=== PATIENT | female | born 1975 | race Caucasian/White ===

== ENCOUNTER 2022-03-23 11:07 | Day surgery (SDC) | payer OTHER ==
[2022-03-23 11:55] VITALS: BMI 25.0
[2022-03-23] MEDS ORDERED: MIDAZOLAM HCL 2 MG/2 ML SINGLE DOSE VIAL ONE (13:00)
[2022-03-23] MEDS ORDERED: SUCCINYLCHOLINE CHLORIDE 200 MG/10 ML SYRINGE ONE (13:00)
[2022-03-23] MEDS ORDERED: PROPOFOL 20 ML ONE (13:00)
[2022-03-23] MEDS ORDERED: ROCURONIUM BROMIDE 50 MG/5 ML SYRINGE ONE ×2 (13:00→14:28)
[2022-03-23] MEDS ORDERED: ceFAZolin SODIUM 1 GM VIAL IVPB ONE (13:10)
[2022-03-23] MEDS ORDERED: GLYCOPYRROLATE 0.2 MG/1 ML VIAL ONE (15:32)
[2022-03-23] MEDS ORDERED: NEOSTIGMINE METHYLSULFATE 0.5 MG/ML - 10 ML MDV ONE (15:32)
[2022-03-23] MEDS ORDERED: diphenhydrAMINE HCL 25 MG CAPSULE (FP) PO PRN (16:00)
[2022-03-23] MEDS ORDERED: PROMETHAZINE HCL 25 MG/1 ML VIAL IVPUSH PRN (16:00)
[2022-03-23] MEDS ORDERED: oxyCODONE HCL 5 MG TABLET PO PRN ×3 (16:00)
[2022-03-23] MEDS ORDERED: morphine SULFATE 4 MG/ML VIAL IVPUSH PRN (16:00)
[2022-03-23] MEDS ORDERED: ONDANSETRON 4 MG/2 ML VIAL IVPUSH PRN ×2 (16:00)
[2022-03-23] MEDS ORDERED: LACTATED RINGERS SOLUTION 1,000 ML IV SCH (16:00)
[2022-03-23] MEDS ORDERED: ACETAMINOPHEN INJECTION 100 ML IVPB ONE (17:14)
[2022-03-23] MEDS ORDERED: ACETAMINOPHEN 1000 MG/100 ML BAG IVPB ONE ×2 (17:16→17:20)
[2022-03-23] MEDS: ACETAMINOPHEN 1000 MG/100 ML BAG IVPB SCH (18:07)
[2022-03-23] MEDS: CEFAZOLIN 1 GM in DEXTROSE 5%-WATER - 50 ML IVPB SCH (21:35)
[2022-03-23] MEDS: LACTATED RINGERS SOLUTION 1,000 ML/1,000 ML INFUS.BAG IV SCH (21:35)
[2022-03-23] MEDS: DOCUSATE SODIUM 100 MG CAPSULE (FP) PO SCH (21:35)
[2022-03-23 21:53] VITALS: RESP 18
[2022-03-23] MEDS: HEPARIN NA (PORCINE) 5,000 UNITS/ML 1ML VIAL SQ SCH (23:51)
[2022-03-24] MEDS: HEPARIN NA (PORCINE) 5,000 UNITS/ML 1ML VIAL SQ SCH ×2 (01:49→09:24)
[2022-03-24] MEDS: ACETAMINOPHEN 1000 MG/100 ML BAG IVPB SCH ×2 (01:50→06:52)
[2022-03-24] MEDS: CEFAZOLIN 1 GM in DEXTROSE 5%-WATER - 50 ML IVPB SCH (06:11)
[2022-03-24] MEDS: DOCUSATE SODIUM 100 MG CAPSULE (FP) PO SCH (06:11)
[2022-03-24] MEDS ORDERED: methaDONE HCL 10 MG TABLET (FOR DETOX USE ONLY) PO ONE (07:00)
[2022-03-24] MEDS: LACTATED RINGERS SOLUTION 1,000 ML/1,000 ML INFUS.BAG IV SCH (07:15)
[2022-03-24] MEDS ORDERED: FERROUS SO4 325 MG TABLET (FP) PO SCH (10:00)
[2022-03-24 11:02] VITALS: BP 115/71; PULSE 69; TEMP 98
[2022-03-24 12:27] LABS: HEMATOCRIT 29.2 % (32.4-45.2); HEMOGLOBIN 9.5 GM/dL (10.7-15.3); MCHC 32.6 g/dl (32.0-36.0); MEAN CELL VOLUME 82.9 fl (80-96); MEAN PLT VOLUME 9.1 fl (7.5-11.1); PLATELET COUNT 348 10^3/uL (134-434); RBC 3.52 M/mm3 (3.60-5.2); RDW 21.2 % (11.6-15.6); WHITE BLOOD COUNT 8.1 K/mm3 (4.0-10.0)
[2022-03-24 13:23] LABS: CALCIUM 8.2 mg/dL (8.5-10.1)
[2022-03-24 13:24] LABS: BLOOD UREA NITROGEN 9.2 mg/dL (7-18); MAGNESIUM 2.1 mg/dL (1.8-2.4)
[2022-03-24 13:27] LABS: CREATININE 0.7 mg/dL (0.55-1.3); PHOSPHOROUS 3.2 mg/dL (2.5-4.9)
== END 2022-03-24 11:44 | disposition home or self-care (01) ==
LOC: JASU-SURG 11:07 → SUATTDRO 11:07 → JASUSAT 11:07 → J5S 20:46 → JASUSAT 03-24 11:44
PROVIDERS: ATTEND Internal Medicine
PROC: 0WUF0JZ Supplement Abdominal Wall with Synthetic Substitute, Open Approach (ICD-10-PCS; principal; 2022-03-23 13:18)
DX: K43.9 Ventral hernia without obstruction or gangrene (principal)
CPT/HCPCS: 36415; 80048; 81025; 83735; 84100; 85027; 88302-TC; 93005; 93010; 94760; C1781; J1644